=== PATIENT | male | born 1980 | race Caucasian/White ===

== ENCOUNTER 2024-12-08 09:52 | Outpatient (AMB) | payer OTHER, SELFPAY ==
--- NOTE | 2024-12-08 10:02 | MHC.PC.OV ---
Vital Signs 12/08/24 10:11 Height 6 ft Weight 299 lb 3 oz BMI 40.6 BP 118/78 Blood Pressure Location Rt brachial Position Sitting Respiration 15 Pulse 77 Pulse Source Pulse Oximeter Temp 97.5 F Temp Source Temporal Artery Scan Pulse Oximetry (%) 98 Oxygen Delivery Method Room Air Intake Visit Reasons: Log Roller requesting CPE/med refill Intake Note: Sam presents in the office today to establish care. Allergies No Known Allergies Allergy (Verified 12/08/24 10:06) Medication List - Last Reconciled 12/08/24 by Obed Maza MD omeprazole 20 mg PO DAILY tirzepatide (Mounjaro) 15 mg subcut QWEEK Tobacco use date assessed: 12/08/24 Dental Screening Dental Screen Date: 12/08/24 Did you have a dental visit in the last 12 months?: Yes Did you have a dental problem in the last 6 months where you did not have access to dental care?: No Was dental information given to patient?: Patient has dentist HPI [facility] requesting CPE/med refill HPI Details New Patient? ?? Prior PCP:? Dr Harris Last office visit/CPE:? May for f/u. CPE in Jun Acute issue(s):? ?? PMHx:? DM, Gastritis, Hernia - Recent CT. Subcutaneous Cysts SurgHx:? Gall Bladder. ORIF R arm. FHx:? Mom: Thyroid Abnormality. Dad: HTN, HLD. GM: Lymphoma SocHx: Quit Cigs 10 yrs ago (Smoked 10 yrs 1-2 cigs daily). EtOH None. No Drugs Will Get CT results for f/u hernia and Lump/Cyst on Abdomen [facility] Medical History (Updated 12/08/24 @ 10:59 by Tano Montaño) Migraines Fracture of arm Sebaceous cyst Diabetes Acid reflux Surgical History (Updated 12/08/24 @ 10:17 by Roxy Alva MA) Hx of cholecystectomy Family History (Updated 12/08/24 @ 10:11 by Roxy Alva MA) Father Hyperlipemia Mother Genetic thyroid disorder Paternal Grandmother Lymphoma Brother Substance abuse Alcoholism Social History (Updated 12/08/24 @ 10:11 by Roxy Alva MA) Housing: House Alcohol intake: never Patient Tobacco Use Status: Former Tobacco user Cigarette Packs Per Day: 1 Cigarettes Per Day: 2 Years Smoked: 10 e-Cigarette/Vaping Use: Never Used Second Hand Smoke Exposure: No service: No Current occupational status: employed 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 1. Little interest or pleasure in doing things: not at all 2. Feeling down, depressed, or hopeless: not at all 3. Trouble falling or staying asleep, or sleeping too much: not at all 4. Feeling tired or having little energy: not at all 5. Poor appetite or overeating: not at all 6. Feeling bad about yourself - or that you are a failure or have let yourself or your family down: not at all 7. Trouble concentrating on things, such as reading the newspaper or watching television: not at all 8. Moving or speaking so slowly that other people could have noticed. Or the opposite - being so fidgety or restless that you have been moving around a lot more than usual: not at all 9. Thoughts that you would be better off or of hurting yourself in some way: not at all Total score: 0 Depression Screening Interpretation: Negative Depression Screening Done: Yes 02588 - PHQ-9 Billing: Yes Source: Developed by Drs. Karlo Randall, Tova Concepcion, Bolivar Anna and colleagues, with an educational gema from [employer]. Thrive Questionnaire Date Thrive assessed: 12/08/24 I am a: Patient What is your living situation today?: I have a steady place to live Within the past 12 months, did the food you bought not last and you didn't have the money to get more?: Never true Within the past 12 months, did you worry whether your food would run out before you got money to buy more?: Never true Do you have trouble paying for medicines?: No Do you have trouble getting transportation to medical appointments?: No Do you have trouble paying your heating and electricity bill?: No Do you have trouble taking care of your child, family member or friend?: No Do you have trouble with day-to-day activities such as bathing, preparing meals, shopping, managing finances, etc.?: No Are you currently unemployed and looking for a job?: No Are you interested in more education?: No Please select the resources that you would like help with: None Currently or been in a relationship where the following occur: No concerns reported THRIVE Score: 0 AUDIT C Alcohol Use Questionnaire (AUDIT-C) 1. How often do you have a drink containing alcohol?: Never 3. How often do you have six or more drinks on one occasion?: Never Total Score: 0 CONSUELO-7 AMB Questionnaire CONSUELO-7 Date CONSUELO - 7 assessed: 12/08/24 Feeling nervous, anxious, or on edge: 0 = Not at all Not being able to stop or control worryin = Not at all Worrying too much about different things: 0 = Not at all Trouble relaxin = Not at all Being so restless that it is hard to sit still: 0 = Not at all Becoming easily annoyed or irritable: 0 = Not at all Feeling afraid as if something awful might happen: 0 = Not at all Total CONSUELO-7 score (0-4 normal; 5-9 mild; 10-14 moderate; 15-21 severe): 0 Source: Developed by Drs. Karlo Randall, Tova Concepcion, Bolivar Anna and colleagues, with an educational gema from [employer]. CONSUELO-7 Assessment Billing CONSUELO-7 Assessment Tool: CONSUELO-7 Assessment 18561 Review of Systems Const Denies chills, Denies fatigue, Denies fever(s), Denies headache(s) and Denies weakness ENT Denies dizziness and Denies headache(s) Card Denies chest pain, Denies lightheadedness, Denies dyspnea and Denies other (Palpitations) Resp Denies cough, Denies dyspnea, Denies wheezing and Denies other ( shortness of breath) Musc Denies numbness and Denies tingling Neuro Denies dizziness, Denies headache(s), Denies numbness, Denies tingling, Denies paresthesias and Denies weakness Psych Denies anxiety and Denies depression Endo Denies fatigue Aller/Immun Denies wheezing Physical exam (Primary Care) Vital Signs: Last Vital Signs Temp 97.5 F 12/08/24 10:11 Pulse 77 12/08/24 10:11 Resp 15 12/08/24 10:11 BP 118/78 12/08/24 10:11 Pulse Ox 98 12/08/24 10:11 Oxygen Delivery Method Room Air 12/08/24 10:11 BMI result Body Mass Index 40.6 Tobacco/Smoking Status: Tobacco use Status Tobacco use date assessed 12/08/24 12/08/24 10:17 Patient Tobacco Use Status Former Tobacco user 12/08/24 10:17 e-Cigarette/Vaping Use Never Used 12/08/24 10:17 PHQ-9: PHQ-9 Score PHQ-9: Total score 0 12/08/24 10:21 Depression Screening Interpretation: Negative Thrive Assessment: Date of Thrive Assessment Date Thrive assessed 12/08/24 12/08/24 10:04 Currently or been in a relationship where the following occur: No concerns reported Const General: no acute distress and well developed Nutritional Appearance: well nourished Orientation/consciousness: patient oriented x3 HENMT Head: Yes normocephalic and Yes atraumatic Eyes General: appearance normal, both eyes and all related structures Pupils: Equal, round and reactive pupils present EOM: EOMs intact bilaterally Resp Effort & Inspection: normal respiratory effort Auscultation: clear to auscultation bilaterally Cardio Rate: regular rate Rhythm: regular rhythm Heart sounds: S1 normal heart sound present, S2 normal heart sound present, no gallops, no murmurs and no rubs Neuro General: patient oriented x3 and gait normal Cranial nerves: Yes Equal, round and reactive pupils present Psych Affect: normal affect Results AMB Hemoglobin A1c AMB Hemoglobin A1c 9.1 % Last Edit by Roxy Alva MA on 12/08/24 10:26 Results Reviewed Results Reviewed: Laboratory Last Values Hgb A1c (Clinic) 9.1 % (4.0-6.0) H 12/08/24 10:22 Coding Level of Care Code New Pt Level 4 (59060) Diagnoses Diabetes E11.9 Gastritis K29.70 Morbid obesity E66.01 Hernia K46.9 Subcutaneous cyst L72.9 Laboratory exam ordered as part of routine general medical examination Z00.00 Additional Codes CONSUELO-7 Assessment Billing - CONSUELO-7 Assessment Tool: CONSUELO-7 Assessment 12843 ([id number]) PHQ-9 - 81315 - PHQ-9 Billing: Yes ([id number]) Assessment & Plan Assessment & Plan (1) Diabetes: Code(s): E11.9 - Type 2 diabetes mellitus without complications Category: Medical Plan: A1c today 4.9% on Mounjaro. Good control. Will continue monitor Encouraged weight loss, diet and exercise (2) Gastritis: Code(s): K29.70 - Gastritis, unspecified, without bleeding Category: Medical Plan: Longstanding history recurrent gastritis He has been omeprazole for years? Will refill script but recommend he see Gastroenterology. (3) Morbid obesity: Code(s): E66.01 - Morbid (severe) obesity due to excess calories Category: Medical Plan: Patient is on Mounjaro. Has not seen much improvement with weight loss on this but as his prior PCP suggested, it may preventing further weight gain. He has benefited from cross fit in past and recommending he include this in his weight loss regimen along with Mounjaro and a diet Will continue to follow weight (4) Hernia: Code(s): K46.9 - Unspecified abdominal hernia without obstruction or gangrene Category: Medical Plan: Appears to have small ventral hernia alongside scar from his cholecystectomy Patient says he had a recent CT of his abdomen. Gets report (5) Subcutaneous cyst: Code(s): L72.9 - Follicular cyst of the skin and subcutaneous tissue, unspecified Category: Medical Plan: Patient has subcutaneous lump at right lower abdomen Will follow-up on ultrasound and CT scan and I have them available (6) Laboratory exam ordered as part of routine general medical examination: Code(s): Z00.00 - Encounter for general adult medical examination without abnormal findings Category: Medical Plan: Check labs Orders: Orders Comprehensive [place]. Panel Fast Today Z00.00 - Encounter for general adult medical examination without abnormal findings Prostate Specific Antigen Scr Today Z12.5 - Encounter for screening for malignant neoplasm of prostate UA CC w/rflx Micro + Cult Today Z00.00 - Encounter for general adult medical examination without abnormal findings Hemoglobin A1c Today R73.01 - Impaired fasting glucose AMB Hemoglobin A1c Today E11.9 - Type 2 diabetes mellitus without complications, Z13.9 - Encounter for screening, unspecified Lipid Panel Today Z00.00 - Encounter for general adult medical examination without abnormal findings Microalbumin, Random (w Creat) Today I10 - Essential (primary) hypertension TSH reflex Free T4 Today Z00.00 - Encounter for general adult medical examination without abnormal findings
[2024-12-08 10:11] VITALS: BP 118/78; PULSE 77; RESP 15; TEMP 36.4; O2SAT 98; BMI 40.6
--- OUTSIDE RECORDS SUMMARY | 2024-12-08 10:22 | XMS_ITS | Clinical Summary ---
Author Organization [facility] Address [address] [place] [address] Care Team Providers Care Fruit And Vegetable Parer Name Role Phone Sam Joya MD Primary Care Provider [phone] Allergies No known active allergies Medications No known medications Active Problems Problem Noted Date Diagnosed Date Ganglion cyst of wrist 01/28/2008 Body mass index 36.0-36.9, adult 01/28/2008 Overview (01/28/2008): Diet and exercise, DASH Immunizations Immunization Administration Dates Next Due COVID-19, mRNA (Pfizer Pre F all 2022) Monovalent, 30 mcg/0.3 ml 03/20/2021,09/13/2020,08/21/2020 Influenza,injectable,quad,Prsrv Fr 05/20/2021 Td (adult), adsorbed 04/22/2016 Tdap(Boostrix) 01/28/2008 Family History Medical History Relation Name Comments Psych/Mental Health Brother 2 on meds Lipid/Cholesterol Abnormality Father Other Father Obesity Other Mother Obesity Psych/Mental Health Sister 3 Alcohol/Drug Neg Hx Asthma Neg Hx Cancer (?Type) Neg Hx Diabetes Neg Hx Relation Name Status Comments Brother 1 Alive Brother 2 Father Alive Mother Alive Sister 1 Alive Sister 2 Alive Sister 3 Social History Tobacco Use Types Packs/Day Years Used Date Smoking Tobacco: Every Day Cigarettes 0.3 10 Comments:previously heavy sm oker Alcohol Use Standard Drinks/Week Comments Yes 0 (1 standard drink = 0.6 oz pur e alcohol) rarely Sex and Gender Information Value Date Recorded Sex Assigned at Not on file Legal Sex Male 3:48 AM EDT Gender Identity Not on file Sexual Orientation Not on file 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 on file Not on file Not on file Last Filed Vital Signs Vital Sign Reading Time Taken Comments Blood Pressure 124/68 01/28/2008 3:12 PM EDT Pulse 68 01/28/2008 3:12 PM EDT Temperature - - Respiratory Rate - - Oxygen Saturation - - Inhaled Oxygen Concentration - - Weight 122 kg (269 lb) 01/28/2008 3:12 PM EDT Height 181.6 cm (5' 11.5 ) 01/28/2008 3:12 PM ED T Body Mass Index 36.99 01/28/2008 3:12 PM EDT Plan of Treatment Health Maintenance Due Date Last Done Comments Hepatitis C Screening 1981 Hep B (1 of - 19+ 3-dose series) 2000 COVID-19 Vaccine (2023-2 5 season) 2024 03/20/2021, 09/13/2020, 08/21/2020 Influenza (#1) 2025 05/20/2021 DTaP/Tdap/Td (3 - Td or Tdap) 04/22/2026, 01/28/2008 Zoster (Shingrix) (1 of 2) 09/07/2031 HPV Vaccine (No Doses Required) Completed Hep A Aged Out No longer eligi ble based on patient's age to complete this topic Hib Aged Out No longer eligi ble based on patient's age to complete this topic Meningococcal ACWY Aged Out No longer eligible based on patient's age to complete this topic Pneumococcal Aged Out No longer eligi ble based on patient's age to complete this topic Insurance [facility] HMO/HMO ADVANTAGE Care Teams Fruit And Vegetable Parer Relationship Specialty Start Date End Date Sam Joya MD PCP - General 08/17/07
== END 2024-12-08 10:51 | disposition home or self-care (01) ==
LOC: HO.HMCFM 09:53
PROVIDERS: PCP Family Medicine; Visit Provider Family Medicine
DX: E11.9 Type 2 diabetes mellitus without complications (principal); K29.70 Gastritis, unspecified, without bleeding; E66.01 Morbid (severe) obesity due to excess calories; K46.9 Unspecified abdominal hernia without obstruction or gangrene; L72.9 Follicular cyst of the skin and subcutaneous tissue, unspecified; Z68.41 Body mass index [BMI] 40.0-44.9, adult

== ENCOUNTER → 2024-12-08 09:52 | Outpatient (BNVA) | payer OTHER, SELFPAY | PROVIDERS: PCP Family Medicine; Visit Provider Family Medicine | DX: Z00.00 Encounter for general adult medical examination without abnormal findings (principal); E11.9 Type 2 diabetes mellitus without complications; K29.70 Gastritis, unspecified, without bleeding; E66.01 Morbid (severe) obesity due to excess calories; L72.9 Follicular cyst of the skin and subcutaneous tissue, unspecified; I10 Essential (primary) hypertension; K43.9 Ventral hernia without obstruction or gangrene | CPT/HCPCS: 83036; 96127 ==

== ENCOUNTER 2025-03-10 07:46 | Outpatient (REF) | payer OTHER, SELFPAY ==
--- OUTSIDE RECORDS SUMMARY | 2025-03-09 13:30 | XMS_ITS | Encounter Summary ---
Author Organization [facility] Address [address] [place] [address] Care Team Providers Care Mcat Instructor Name Role Phone Kiya Pittman RD Unavailable Unavailable No, Pcp Primary Care Provider Unavailabl e Reason for Visit * Reason Comments Health Coaching Encounter Details Date Type Department Care Team (Late st Contact Info) Description 03/09/2025 1:30 PM EST Health Coaching Visit [facility] [employer] [place] [address] [place] [phone] Arrived Social History Tobacco Use Types Packs/Day Years Used Date Smoking Tobacco: Never Assessed Sex and Gender Information Value Date Recorded Sex Assigned at Not on file Legal Sex Male 12:49 PM [facility] Gender Identity Not on file Sexual Orientation Not on file documented as of this encounter Progress Notes * Kiya Pittman RD - 03/09/2025 1:30 PM EST Health Coaching Note Template Current coaching customer location: [place] Encounter Documentation Coaching Session #: 1 Coaching Session Type: In-Person Coaching Location Alignment [facility] [place]: [place], [place] Patient Stated Conditions: Wellness (Stress, Activity, Healthy Eating, Weight) Coaching Discussion Summary Highlight any new/unexpected insights customer faced this session: Continues with [facility] 5x/week. Considering buying an exercise bike for the winter. Eating at regular times during the day - fruit 2x/day, salad for dinner most nights. Snacks on almonds, cheese sticks. Finds chips/fries not appealing anymore. Drinks black coffee throughout day. Current water intake 30-40 ounces. Wants to increase water intake to 3-16 ounces bottles/day. Reviewed Urine Color chart. Next Session Follow up on wellbeing wallet on future session Next scheduled coaching session: Follow up in 5 weeks (on 04/13/2025). Any upcoming provider appts at that location if applicable: none documented in this encounter Plan of Treatment Upcoming Encounters Date Type Department Care Team (Late st Contact Info) Description 04/13/2025 2:00 PM EST Health Coaching Visit [facility] [employer] [place] [address] [place] [phone] documented as of this encounter Goals Goal Patient Goal Type Associated Problems Recent Progress Patient-Stated? Author Provide and review Metabolic Syndrome specific workbook (delete if not applicable) Care Plan Wellness Specific Goals No Kiya Pittman RD Set initial healthcare provider visit Care Plan Wellness Specific Goals No Kiya Pittman RD Take actions to address health maintenance gaps Care Plan Wellness Specific Goals Kiya Allen RD Increase physical activity Care Plan Physical Activity Kiya Allen RD Exercise X minutes on X days per week Care Plan Physical Activity Kiya Allen RD Improve balance, strength or endurance Care Plan Physical Activity Kiya Allen RD Start of Coaching Healthy Eating Survey: Generate baseline customer score Care Plan Healthy Eating Kiya Allen RD End of Coaching Healthy Eating Survey: Generate customer endpoint score Care Plan Healthy Eating Kiya Allen RD Eat less salt Care Plan Healthy Eating Kiya Allen RD Eat less fast food Care Plan Healthy Eating Kiya Loyd i, RD Cut out extra servings at meals Care Plan Healthy Eating Kiya Allen RD Drink less soda, juice, and other sugary beverages Care Plan Healthy Eating On track( 025 3:47 PM EST) Kiya Allen RD Note: Motivation (Select one of these): Motivation high Confidence high Will drink 3, 16 ounce bottles of water daily. Eat fewer sweets and sugary snacks Care Plan Healthy Eating Kiya Allen RD Decrease/monitor simple carbohydrate intake Care Plan Healthy Eating Kiya Allen RD Follow the DASH diet Care Plan Healthy Eating Kiya Allen RD Improve meal consistency Care Plan Healthy Eating No Kiya Pittman RD Plan meals in advance Care Plan Healthy Eating No Kiya Pittman RD Learn how to prepare healthy meals at home Care Plan Healthy Eating No Kiya Pittman RD Eat more fruits and vegetables Care Plan Healthy Eating Kiya Allen RD Start of Coaching HRQOL: Generate baseline customer score Care Plan Behavioral Health No Kiya Pittman RD End of Coaching HRQOL: Generate endpoint customer score Care Plan Behavioral Health No Kiya Pittman RD Start of Coaching Stress Assessment (Standard): Generate baseline customer score Care Plan Behavioral Health No Kiya Pittman RD End of Coaching Stress Assessment (Standard): Generate endpoint customer score Care Plan Behavioral Health No Kiya Pittman RD Improve your coping skills Care Plan Behavioral Health No Kiya Pittman RD Improve problem solving skills Care Plan Behavioral Health No Kiya Pittman RD Improve organizational/tavo e management skills Care Plan Behavioral Health No Kiya Pittman RD Develop/expand support system Care Plan Behavioral Health No Kiya Pittman RD Maintain relationships Care Plan Behavioral Health No Kiya Pittman RD Decrease Alcohol Use Care Plan Behavioral Health No Kiya Pittman RD Decrease Drug Use Care Plan Behavioral Health No Kiya Pittman RD Investigate stress management techniques Care Plan Behavioral Health No Kiya Pittman RD Reduce job or personal stress through self management Care Plan Behavioral Health Kiya Allen RD Patient will identify 3 triggers of depression Care Plan Behavioral Health Kiya Allen RD Patient will better manage their depression Care Plan Behavioral Health Kiya Allen RD Decrease signs and symptoms of depression Care Plan Behavioral Health No Kiya Pittman RD Reduce overall tension and anxiety Care Plan Behavioral Health Kyia Allen RD Client will be able to identify emotional and physiological signs of anxiety Care Plan Behavioral Health Kiya Allen RD Learn and implement coping skills to increase tolerance to anxiety Care Plan Behavioral Health Kiya Allen RD Consistently take Medications as Prescribed Care Plan Medications Kiya Allen RD Healthy Weight management Care Plan Weight No Kiya Pittamn RD Improve Sleep Habits Care Plan Sleep No Kiya Pittman RD Quit using tobacco (cigarettes, smokeless, etc) Care Plan Tobacco No Kiya Pittman RD Reduce tobacco use (cigarettes, smokeless, etc) Care Plan Tobacco No Kiya Pittman RD Work with tobacco cessation program Care Plan Tobacco No Kiya Pittman RD Provide and Review condition specific workbook Care Plan Tobacco No Kiya Pittman RD documented as of this encounter Visit Diagnoses Not on filedocumented in this encounter Additional Health Concerns Active Problems Noted Date Diagnosed Date Wellness Specific Goals 03/09/2025 Physical Activity 03/09/2025 Healthy Eating 03/09/2025 Behavioral Health 03/09/2025 Medications 03/09/2025 Weight 03/09/2025 Sleep 03/09/2025 Tobacco 03/09/2025 documented as of this encounter Care Teams Mcat Instructor Relationship Specialty Start Date End Date No, Pcp PCP - General 03/09/[address] Health Display Fabricator Dietitian 02/28/25 documented as of this encounter
--- OUTSIDE RECORDS SUMMARY | 2025-03-10 07:48 | XMS_ITS | Clinical Summary ---
Author Organization [facility] Address [address] [place] [address] Care Team Providers Care Automobile Taillight Assembler Name Role Phone Kiya Pittman RD Unavailable Unavailable No, Pcp Primary Care Provider Unavailabl e Medications omeprazole OTC (PriLOSEC OTC) 20 mg EC tablet Take 20 mg by mouth 1 (one) time each day Do not crush, chew, or split. Active tirzepatide (Mounjaro) 15 mg/0.5 mL pen injector Inject 15 mg under the skin every 7 (seven) days Active Encounters Date Type Department Care Team Description 03/09/2025 1:30 PM EST Health Coaching Visit [address] [address] Arrived from Last 3 Months Social History Tobacco Use Types Packs/Day Years Used Date Smoking Tobacco: Never Assessed Sex and Gender Information Value Date Recorded Sex Assigned at Not on file Legal Sex Male 12:49 PM MST Gender Identity Not on file Sexual Orientation Not on file Plan of Treatment Upcoming Encounters Date Type Department Care Team (Late st Contact Info) Description 04/13/2025 2:00 PM EST Health Coaching Visit [address] [address] Health Maintenance Due Date Last Done Comments Hepatitis C Screening 1981 MMR Vaccines (1 of 1 - Stand wili series) 1982 PHQ-9 Depression Screen 1993 Varicella Vaccines (1 of 2 - 13+ 2-dose series) 1994 CONSUELO-7 Anxiety Screen 09/07/1999 Hepatitis B Vaccines (1 of 3 - 19+ 3-dose series) 2000 Annual Preventive Exam 01/27/2009 01/28/2008 Influenza Vaccine (#1) 2025 , 02/21/2023, 02/21/2022, Additional history exists DTaP,Tdap,and Td Vaccines (4 - Td or Tdap) 08/15/2027 08/14/2017, 04/22/2016, 01/28/2008 RSV Vaccine (SCDM) (1 - 1-do se 75+ series) 2056 COVID-19 Vaccine Completed 02/13/2024, , 03/20/2021, Additional history exists Goals Goal Patient Goal Type Associated Problems Recent Progress Patient-Stated? Author Provide and review Metabolic Syndrome specific workbook (delete if not applicable) Care Plan Wellness Specific Goals No Kiya Pittman RD Set initial healthcare provider visit Care Plan Wellness Specific Goals No Kiya Pittman RD Take actions to address health maintenance gaps Care Plan Wellness Specific Goals No Kiya Pittman RD Increase physical activity Care Plan Physical Activity Kiya Allen RD Exercise X minutes on X days per week Care Plan Physical Activity No Kiay Pittman RD Improve balance, strength or endurance Care Plan Physical Activity No Kiya Pittman RD Start of Coaching Healthy Eating Survey: Generate baseline customer score Care Plan Healthy Eating No Kiya Pittman RD End of Coaching Healthy Eating Survey: Generate customer endpoint score Care Plan Healthy Eating No Kiya Pittman RD Eat less salt Care Plan Healthy [...] and sugary snacks Care Plan Healthy Eating No Kiya Pittman RD Decrease/monitor simple carbohydrate intake Care Plan Healthy Eating No Kiya Pittman RD Follow the DASH diet Care Plan Healthy Eating No Kiya Pittman RD Improve meal consistency Care Plan Healthy Eating Kiya Allen RD Plan meals in advance Care Plan Healthy Eating Kiya Allen RD Learn how to prepare healthy meals at home Care Plan Healthy Eating Kiya Allen RD Eat more fruits and vegetables Care [...] Health Kiya Allen RD End of Coaching Stress Assessment (Standard): Generate endpoint customer score Care Plan Behavioral Health Kiya Allen RD Improve your coping skills Care Plan Behavioral Health Kiya Allen RD Improve problem solving skills Care Plan Behavioral Health Kiya Allen RD Improve organizational/tavo e management skills Care Plan Behavioral Health Kiya Allen RD Develop/expand support system Care Plan Behavioral Health No Kiya Pittman RD Maintain relationships Care Plan Behavioral Health No Kiya Pittman RD Decrease Alcohol Use Care Plan Behavioral Health No Kiya Pittman RD Decrease Drug Use Care Plan Behavioral Health Kiya Allen RD Investigate stress management techniques Care Plan Behavioral Health Kiya Allen RD Reduce job or personal stress through [...] take Medications as Prescribed Care Plan Medications No Kiya Pittman RD Healthy Weight management Care Plan Weight [...] Care Plan Tobacco No Kiya Pittman RD Additional Health Concerns Active Problems Noted Date Diagnosed Date Wellness Specific Goals 03/09/2025 Physical Activity 03/09/2025 Healthy Eating 03/09/2025 Behavioral Health 03/09/2025 Medications 03/09/2025 Weight 03/09/2025 Sleep 03/09/2025 Tobacco 03/09/2025 Insurance [employer] Care Teams Automobile Taillight Assembler Relationship Specialty Start Date End Date No, Pcp PCP - General 03/09/[address] Health Internist Medical Doctor Md Dietitian 02/28/25
--- OUTSIDE RECORDS SUMMARY | 2025-03-10 07:48 | XMS_ITS ---
Care Plan Created on: March 10, 2025 Sam Mckenna : 1980 Sex: Male Author Organization [facility] Address [address] [place] [address] Care Team Providers Care Food And Drug Research Scientist Name Role Phone Kiya Pittman RD Unavailable Unavailable No, Pcp Primary Care Provider Unavailabl e Additional Health Concerns Active Problems Noted Date Diagnosed Date Wellness Specific Goals 03/09/2025 Physical Activity 03/09/2025 Healthy Eating 03/09/2025 Behavioral Health 03/09/2025 Medications 03/09/2025 Weight 03/09/2025 Sleep 03/09/2025 Tobacco 03/09/2025 Goals Goal Patient Goal Type Associated Problems [...] Increase physical activity Care Plan Physical Activity No Kiya Pittman RD Exercise X minutes on X days per week Care Plan Physical Activity Kiya Allen RD Improve balance, strength or endurance Care Plan Physical Activity No Kiya Pittman RD Start of Coaching Healthy Eating Survey: Generate baseline customer score Care Plan Healthy Eating No Kiya Pittman RD End of Coaching Healthy Eating Survey: Generate customer endpoint score Care Plan Healthy Eating No Kiya iPttman RD Eat less salt Care Plan Healthy [...] Maintain relationships Care Plan Behavioral Health No iKya Pittman RD Decrease Alcohol Use Care Plan Behavioral Health No Kiya Pittman RD Decrease Drug Use Care Plan Behavioral Health No Kiya Pittman RD Investigate stress management techniques Care Plan Behavioral Health No Kiya Pittman RD Reduce job or personal stress through self management Care Plan Behavioral Health No Kiya Pittman RD Patient will identify 3 triggers of depression Care Plan Behavioral Health No Kiya Pittman RD Patient will better manage their depression Care Plan Behavioral Health No Kiya Pittman RD Decrease signs and symptoms of depression [...] RD Healthy Weight management Care Plan Weight Kiya Allen RD Improve Sleep Habits Care Plan Sleep Kiya Allen RD Quit using tobacco (cigarettes, smokeless, etc) Care Plan Tobacco Kiya Allen RD Reduce tobacco use (cigarettes, smokeless, etc) Care Plan Tobacco Kiya Allen RD Work with tobacco cessation program Care Plan Tobacco Kiya Allen RD Provide and Review condition specific workbook Care Plan Tobacco Kiya Allen RD Interventions Care Plan Interventions Intervention Entry Date Outcome (Patient) I will use reminder tools such as a pill box or medication log to help me keep track of what medications to take each day. 03/09/2025 (Patient) I will ensure that I have sufficient amounts of all of my medications. 03/09/2025 (Patient) I will be able to state that I understand how to I am supposed to take my medications. 03/09/2025 (Patient) I will be able to say what my medications are at the next review. 03/09/2025 Medication education 03/09/2025 Related Goals and Interventions Goal Associated Intervent ions Consistently take Medication s as Prescribed (Patient) I will use reminder tools such as a pill box or medication log to help me keep track of what medications to take each day.; (Patient) I will ensure that I have sufficient amounts of all of my medications.; (Patient) I will be able to state that I understand how to I am supposed to take my medications.; (Patient) I will be able to say what my medications are at the next review.; Medication education
--- OUTSIDE RECORDS SUMMARY | 2025-03-10 07:48 | XMS_ITS | Clinical Summary ---
Author Organization [facility] Address [address] [place] [address] Care Team Providers Care Commissary Agent Name Role Phone Sam Joya MD Primary Care Provider [phone] Allergies No known active allergies Medications No [...] Screening 1981 Hep B (1 of - + 3-dose series) 2000 COVID-19 Vaccine (2024-2 6 season) 2025 03/20/2021, 09/13/2020, 08/21/2020 Influenza (#1) 2025 05/20/2021 [...] patient's age to complete this topic Insurance [facility] HMO/HMO ADVANTAGE Care Teams Commissary Agent Relationship Specialty Start Date End Date Sam Joya MD PCP - General 08/17/07
[2025-03-10 11:37] LABS: Appearance Urine Clear; Glucose Urine UA Negative (Negative); PH 7.0 (5.0-9.0); Specific Gravity - Urine <= 1.005 (1.005-1.025)
[2025-03-10 12:16] LABS: Alanine Aminotransferase 35 U/L (0-40); Albumin Level 4.6 g/dL (3.5-5.0); Alkaline Phosphatase 63 U/L (39-117); Anion Gap 10 (12-20); Aspartate Amino Transferase 25 U/L (5-37); Blood Urea Nitrogen 13 mg/dL (9-16); Calcium 9.1 mg/dL (8.4-10.2); Carbon Dioxide 29 mmol/L (22-29); Chloride 106 mmol/L (96-108); Cholesterol 146 mg/dL (<200); Estimated Glomerular Filt Rate > 60; HDL Cholesterol 36 mg/dL (>40); Potassium 4.1 mmol/L (3.3-5.1); Sodium 141 mmol/L (135-145); Total Protein 7.0 g/dL (6.5-8.0); Triglycerides 117 mg/dL (<150)
== END 2025-03-10 07:47 | disposition home or self-care (01) ==
LOC: HO.WFDLDS 07:46
PROVIDERS: Visit Provider Family Medicine
DX: Z00.00 Encounter for general adult medical examination without abnormal findings (principal); R73.01 Impaired fasting glucose; Z12.5 Encounter for screening for malignant neoplasm of prostate; I10 Essential (primary) hypertension
CPT/HCPCS: 36415; 80053; 80061; 81003; 82043; 82570; 83036; 84153; 84443

== ENCOUNTER 2025-03-13 11:41 | Outpatient (AMB) | payer OTHER, SELFPAY ==
--- OUTSIDE RECORDS SUMMARY | 2025-03-09 13:30 | XMS_ITS | Encounter Summary ---
Author Organization [facility] Address [address] [place] [address] Care Team Providers Care Planimeter Operator Name Role Phone Kiya Pittman RD Unavailable Unavailable No, Pcp Primary Care Provider Unavailabl e Reason for Visit * Reason Comments Health Coaching Encounter Details Date Type Department Care Team (Late st Contact Info) Description 03/09/2025 1:30 PM EST Health Coaching Visit [facility] Hematologist [place] [address] [place] [phone] Social History Tobacco Use Types Packs/Day Years Used Date Smoking Tobacco: Never Assessed Sex and Gender Information Value Date Recorded Sex Assigned at Not on file Legal Sex Male 12:49 PM [facility] Gender Identity Not on file Sexual Orientation Not on file documented as of this encounter Progress Notes * Kiya Pittman RD - 03/09/2025 1:30 PM EST Health Coaching Note Template Current coaching customer location: [place] Encounter Documentation Coaching Session #: 1 Coaching Session Type: In-Person Coaching Location Alignment [facility] [place]: [place], [place] Patient Stated Conditions: Wellness (Stress, Activity, Healthy Eating, Weight) Coaching Discussion Summary Highlight any new/unexpected insights customer faced this session: Continues with [facility] 5x[facility]week. Considering buying an exercise bike for [...] 04/13/2025 2:00 PM EST Health Coaching Visit [facility] Hematologist [place] [address] [place] [phone] documented as of this [...] Improve meal consistency Care Plan Healthy Eating Kiya Allen RD Plan meals in advance Care Plan Healthy Eating No Kiya Pittman RD Learn how to prepare healthy meals at home Care Plan Healthy Eating No Kiya Pittman RD Eat more fruits and vegetables Care Plan Healthy Eating No Kiya Pittman RD Start of Coaching HRQOL: Generate baseline customer score Care Plan Behavioral Health Kiya Allen RD End of Coaching HRQOL: Generate endpoint [...] e management skills Care Plan Behavioral Health Kiya Allen RD Develop/expand support system Care Plan Behavioral [...] symptoms of depression Care Plan Behavioral Health Kiya Allen RD Reduce overall tension and anxiety Care Plan Behavioral Health Kiya Allen RD Client will be able to identify emotional and physiological signs of anxiety Care Plan Behavioral Health Kiya Allen RD Learn and implement coping skills to increase tolerance to anxiety Care Plan Behavioral Health Kiya Allen RD Consistently take Medications as Prescribed Care Plan Medications Kiya Allen RD Healthy Weight management Care Plan Weight No Kiya Pittman RD Improve Sleep Habits Care Plan Sleep [...] documented as of this encounter Care Teams Planimeter Operator Relationship Specialty Start Date End Date No, Pcp PCP - General 03/09/[address] Health Hematologist Dietitian 02/28/25 documented as of this encounter
--- NOTE | 2025-03-13 11:57 | A.OFFPC_ITS ---
Vital Signs 03/13/25 12:01 Height 6 ft Weight 299 lb 2 oz BMI 40.6 BP 120/80 Blood Pressure Location Rt brachial Position Sitting Respiration 16 Pulse 73 Pulse Source Pulse Oximeter Temp 98.6 F Temp Source Oral Pulse Oximetry (%) 98 Oxygen Delivery Method Room Air Intake Visit Reasons: CPE with f/u labs and health maint. Intake Note: patient is scheduled for a CPE Milk House Worker Required: No Allergies No Known Allergies Allergy (Verified 03/13/25 11:58) Tobacco use date assessed: 03/13/25 Dental Screening Dental Screen Date: 03/13/25 Did you have a dental visit in the last 12 months?: Yes Did you have a dental problem in the last 6 months where you did not have access to dental care?: No Was dental information given to patient?: No HPI CPE with f/u labs and health maint. HPI Details 44 y/o male presents for a CPE with f/u labs and health maint. Labs drawn 03/10/25. Reviewed labs with pt. Triglycerides 117. TC 146. LDL 87. HDL low at 36. Last A1c 12/08/24 4.9%. Reports R elbow pain. [facility] Medical History (Updated 03/13/25 @ 12:16 by Tano Montaño) Migraines Fracture of arm Sebaceous cyst Diabetes Acid reflux Surgical History (Updated 12/08/24 @ 10:17 by Roxy Alva MA) Hx of cholecystectomy Family History (Updated 03/13/25 @ 12:09 by Kimber Rincon [facility]) Father Hyperlipemia High blood pressure Psychiatric disorder Mother Genetic thyroid disorder Paternal Grandmother Lymphoma Brother Substance abuse Alcoholism Maternal Grandmother Cardiovascular disease Breast cancer Diabetes Paternal Grandfather Colon cancer Heart attack Maternal Grandfather Alcoholism Social History (Updated 12/08/24 @ 10:11 by Roxy Alva MA) Housing: House Alcohol intake: never Patient Tobacco Use Status: Former Tobacco user Cigarette Packs Per Day: 1 Cigarettes Per Day: 2 Years Smoked: 10 e-Cigarette/Vaping Use: Never Used Second Hand Smoke Exposure: No service: No Current occupational status: employed 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 1. Little interest or pleasure in doing things: not at all 2. Feeling down, depressed, or hopeless: not at all 3. Trouble falling or staying asleep, or sleeping too much: not at all 4. Feeling tired or having little energy: not at all 5. Poor appetite or overeating: not at all 6. Feeling bad about yourself - or that you are a failure or have let yourself or your family down: not at all 7. Trouble concentrating on things, such as reading the newspaper or watching television: not at all 8. Moving or speaking so slowly that other people could have noticed. Or the opposite - being so fidgety or restless that you have been moving around a lot more than usual: not at all 9. Thoughts that you would be better off or of hurting yourself in some way: not at all Total score: 0 Depression Screening Interpretation: Negative Depression Screening Done: Yes 30455 - PHQ-9 Billing: Yes Source: Developed by Drs. Karlo Randall, Tova Concepcion, Bolivar Anna and colleagues, with an educational gema from [employer] Thrive Questionnaire Date Thrive assessed: 03/13/25 I am a: Patient What is your living situation today?: I have a steady place to live Within the past 12 months, did the food you bought not last and you didn't have the money to get more?: Never true Within the past 12 months, did you worry whether your food would run out before you got money to buy more?: Never true Do you have trouble paying for medicines?: No Do you have trouble getting transportation to medical appointments?: No Do you have trouble paying your heating and electricity bill?: No Do you have trouble taking care of your child, family member or friend?: No Do you have trouble with day-to-day activities such as bathing, preparing meals, shopping, managing finances, etc.?: No Are you currently unemployed and looking for a job?: No Are you interested in more education?: No Please select the resources that you would like help with: None Currently or been in a relationship where the following occur: No concerns reported THRIVE Score: 0 AUDIT C Alcohol Use Questionnaire (AUDIT-C) 1. How often do you have a drink containing alcohol?: Monthly or less 2. How many drinks containing alcohol do you have on a typical day when you are drinking?: 1 or 2 3. How often do you have six or more drinks on one occasion?: Never Total Score: 1 Score Reviewed/Action Taken: Yes CONSUELO-7 AMB Questionnaire CONSUELO-7 Date CONSUELO - 7 assessed: 03/13/25 Feeling nervous, anxious, or on edge: 0 = Not at all Not being able to stop or control worryin = Not at all Worrying too much about different things: 0 = Not at all Trouble relaxin = Not at all Being so restless that it is hard to sit still: 0 = Not at all Becoming easily annoyed or irritable: 0 = Not at all Feeling afraid as if something awful might happen: 0 = Not at all Total CONSUELO-7 score (0-4 normal; 5-9 mild; 10-14 moderate; 15-21 severe): 0 Source: Developed by Drs. Karlo Randall, Tova Concepcion, Bolivar nAna and colleagues, with an educational gema from [employer] CONSUELO-7 Assessment Billing CONSUELO-7 Assessment Tool: CONSUELO-7 Assessment 70678 Review of Systems Const Denies chills, Denies fatigue, Denies fever(s), Denies headache(s) and Denies weakness Eyes Denies change in vision ENT Denies dizziness, Denies headache(s), Denies hearing loss, Denies nasal congestion, Denies sinus pain, Denies sinus pressure and Denies sore throat Card Denies chest pain, Denies lightheadedness, Denies dyspnea and Denies other (palpitations) Resp Denies cough, Denies dyspnea and Denies wheezing GI Denies abdominal pain, Denies melena, Denies hematochezia, Denies change in bowel habits, Denies dyspepsia and Denies nausea Denies hematuria and Denies dysuria Musc Denies abnormal gait, Denies myalgias, Denies arthralgias, Denies numbness and Denies tingling Skin/Breast Denies rash, Denies unusual bruising and Denies wounds Neuro Denies abnormal gait, Denies dizziness, Denies headache(s), Denies memory loss, Denies numbness, Denies Sensory deficit (Neuro), Denies tingling and Denies weakness Psych Denies anxiety, Denies depression and Denies memory loss Endo Denies cold intolerance, Denies fatigue, Denies heat intolerance, Denies polydipsia and Denies polyuria Alan/Lymph Denies easy bleeding and Denies easy bruising Aller/Immun Denies wheezing Physical exam (Primary Care) Tobacco/Smoking Status: Tobacco use Status Tobacco use date assessed 03/13/25 03/13/25 12:00 Patient Tobacco Use Status Former Tobacco user 03/13/25 12:00 e-Cigarette/Vaping Use Never Used 03/13/25 12:00 PHQ-9: PHQ-9 Score PHQ-9: Total score 0 03/13/25 12:00 Depression Screening Interpretation: Negative Thrive Assessment: Date of Thrive Assessment Date Thrive assessed 03/13/25 03/13/25 12:01 Currently or been in a relationship where the following occur: No concerns reported Const General: no acute distress, well developed, alert and awake Nutritional Appearance: well nourished Orientation/consciousness: patient oriented x3 HENMT Head: Yes normocephalic and Yes atraumatic Ears: hearing grossly normal bilaterally and TM's normal bilaterally General nose exam: Normal external nose present and Normal nares present Mouth: Normal oral and palatal mucosa present and moist mucous membranes Teeth and gingiva: dentition normal Throat: Yes posterior oropharynx normal Eyes General: appearance normal, both eyes and all related structures Pupils: Equal, round and reactive pupils present and Pupil accommodation reflex normal EOM: EOMs intact bilaterally Neck Neck: Yes normal visual inspection, Yes no lymphadenopathy and Yes trachea midline Thyroid: Thyroid normal Carotids: no bruits Lymphatic: no lymphadenopathy noted Chest Chest palpation & inspection: normal inspection of the chest Resp Effort & Inspection: normal respiratory effort Auscultation: clear to auscultation bilaterally Cardio Rate: regular rate Rhythm: regular rhythm Heart sounds: S1 normal heart sound present, S2 normal heart sound present, no gallops, no murmurs and no rubs Bruits: no abdominal aortic bruits and no carotid bruits GI Palpation (GI): No Abdominal aortic bruit present, Soft to palpation, nontender, No hepatosplenomegaly present and No Rebound tenderness present Auscultation: normal bowel sounds General: Yes no CVA tenderness Back/Spine/Pelvis Back: no CVA tenderness Cervical Spine: cervical ROM normal and No Cervical spine tenderness Thoracic/Lumbar Spine: thoraco-lumbar ROM normal, No pain with thoraco-lumbar ROM, No thoracic spinal tenderness and No lumbar spinal tenderness Skin Lesions: no lesions Rashes: no rashes Trauma: no lacerations or abrasions Wounds: no wounds Nails: normal Neuro General: patient oriented x3 Cranial nerves: Yes Equal, round and reactive pupils present Cognition (Neuro): normal cognition Gait exam (Neuro): Normal gait present Motor exam (neuro): 5/5 motor strength present throughout Sensory Exam: No Sensory deficit (Neuro) Deep tendon reflexes (DTR's): Right patellar reflex intensity grade: 2+ and Left patellar reflex intensity grade: 2+ Extrem General: Yes normal to inspection and No edema Psych Appearance: grossly normal Affect: normal affect Attitude: cooperative Thought process: Normal thought process present Coding Level of Care Code Est Pt Level 3 (54493) Est Pt Prev Care 40-64y(35803) Diagnoses Adult general medical exam Z00.00 Acid reflux K21.9 Elbow pain M25.529 Diabetes E11.9 Screening for prostate cancer Z12.5 Additional Codes CONSUELO-7 Assessment Billing - CONSUELO-7 Assessment Tool: CONSUELO-7 Assessment 88230 ([id number]) PHQ-9 - 74199 - PHQ-9 Billing: Yes ([id number]) Assessment & Plan Assessment & Plan (1) Adult general medical exam: Code(s): Z00.00 - Encounter for general adult medical examination without abnormal findings Category: Medical Plan: 44-year-old male presents for complete physical exam Exam within normal limits except as described below Encouraged a healthy diabetic diet with plenty of activity and exercise (2) Acid reflux: Code(s): K21.9 - Gastro-esophageal reflux disease without esophagitis Category: Medical Plan: He is taking omeprazole every other day. He can continue or switch to a strategy of anticipation or both. He will let me know if this is worsening (3) Elbow pain: Code(s): M25.529 - Pain in unspecified elbow Category: Medical Plan: Right elbow epitrochlear discomfort which has been improving Continue relative rest, ice and heat, can use NSAIDs Continue exercises learned in PT/OT If worsening or not improving he will let me know and I would refer him to ortho to consider injection therapy (4) Diabetes: Code(s): E11.9 - Type 2 diabetes mellitus without complications Category: Medical Plan: A1c 5.1%. Good control. Goal is less than 7.0% Continue Thierno Work on diabetic diet and weight loss Encouraged exercise (5) Screening for prostate cancer: Code(s): Z12.5 - Encounter for screening for malignant neoplasm of prostate Category: Medical Plan: PSA within normal limits Will continue annual screening
[2025-03-13 12:01] VITALS: BP 120/80; PULSE 73; RESP 16; TEMP 37; O2SAT 98; BMI 40.6
--- OUTSIDE RECORDS SUMMARY | 2025-03-13 14:07 | XMS_ITS | Clinical Summary ---
Author Organization [facility] Address [address] [place] [address] Care Team Providers Care Help Desk Agent Name Role Phone Kiya Pittman RD Unavailable [...] 03/09/2025 1:30 PM EST Health Coaching Visit [address] [address] from Last 3 Months Social History Tobacco Use Types Packs/Day Years Used Date Smoking Tobacco: Never Assessed Sex and Gender Information Value Date Recorded Sex Assigned at Not on file Legal Sex Male 12:49 PM [facility] Gender Identity Not on file Sexual Orientation Not on file Plan of Treatment Upcoming Encounters Date Type Department Care Team (Late st Contact Info) Description 04/13/2025 2:00 PM EST Health Coaching Visit [address] [address] Health Maintenance Due Date [...] 03/09/2025 Tobacco 03/09/2025 Insurance [employer] Care Teams Help Desk Agent Relationship Specialty Start Date End Date No, Pcp PCP - General 03/09/[address] Health Power Plant Operators Supervisor Dietitian 02/28/25
--- OUTSIDE RECORDS SUMMARY | 2025-03-13 14:07 | XMS_ITS ---
Care Plan Created on: March 13, 2025 Sam Mckenna : 1980 Sex: Male Author Organization [facility] Address [address] [place] [address] Care Team Providers Care Parking Lot Supervisor Name Role Phone Kiya Pittman RD Unavailable [...]
--- OUTSIDE RECORDS SUMMARY | 2025-03-13 14:07 | XMS_ITS | Clinical Summary ---
Author Organization [facility] Address [address] [place] [address] Care Team Providers Care Swage Toolsetter Name Role Phone Sam Joya MD Primary Care Provider [phone] Allergies No known active allergies Medications No [...] patient's age to complete this topic Insurance [facility] HMO/HMO ADVANTAGE Care Teams Swage Toolsetter Relationship Specialty Start Date End Date Sam Joya MD PCP - General 08/17/07
== END 2025-03-13 12:21 | disposition home or self-care (01) ==
LOC: HO.HMCFM 11:42
PROVIDERS: PCP Family Medicine; Visit Provider Family Medicine
DX: Z00.00 Encounter for general adult medical examination without abnormal findings (principal); E11.9 Type 2 diabetes mellitus without complications; K21.9 Gastro-esophageal reflux disease without esophagitis; M25.521 Pain in right elbow; Z12.5 Encounter for screening for malignant neoplasm of prostate

== ENCOUNTER → 2025-03-13 11:41 | Outpatient (BNVA) | payer OTHER, SELFPAY | PROVIDERS: PCP Family Medicine; Visit Provider Family Medicine | DX: Z00.00 Encounter for general adult medical examination without abnormal findings (principal); Z12.5 Encounter for screening for malignant neoplasm of prostate; K21.9 Gastro-esophageal reflux disease without esophagitis; M25.529 Pain in unspecified elbow; E11.9 Type 2 diabetes mellitus without complications | CPT/HCPCS: 96127 ==